=== PATIENT | female | born 1970 | race Caucasian/White ===

== ENCOUNTER → 2023-12-15 10:13 | Outpatient (REF) | payer BC, SELFPAY | LOC: HWWDC 10:13 | PROVIDERS: ATTENDING PHYSICIAN Obstetrics & Gynecology Gynecology; FAMILY PHYSICIAN Family Medicine | DX: Z12.31 Encounter for screening mammogram for malignant neoplasm of breast (principal) | CPT/HCPCS: 77063; 77067 ==

== ENCOUNTER → 2025-01-11 14:51 | Outpatient (REF) | payer BC, SELFPAY | LOC: HWWDC 14:51 | PROVIDERS: ATTENDING PHYSICIAN Obstetrics & Gynecology Gynecology; FAMILY PHYSICIAN Family Medicine | DX: Z12.31 Encounter for screening mammogram for malignant neoplasm of breast (principal) | CPT/HCPCS: 77063; 77067 ==

== ENCOUNTER 2025-05-17 15:24 | Inpatient (IN) | payer BC, SELFPAY ==
[2025-05-15 11:23] VITALS: BP 176/92
[2025-05-15 11:38] VITALS: BMI 38.4
--- NOTE | 2025-05-15 12:00 | ED.GENMED ---
History of Present Illness
General
Chief Complaint: Back Pain
Source: patient
Exam Limitations: none
Time Seen by Provider: 05/15/25 11:59
Nursing documentation reviewed up to this point in time: agreed with
History of Present Illness
History of Present Illness:
55-year-old female with history of diverticulitis, thyroid goiter, anxiety, total thyroidectomy 2002, bowel resection 2022, right oophorectomy, presents with right lower back pain radiating down the right buttock and tingling extending to the back
of the leg, reaching behind the knee. Symptoms began about a month ago and she's been seeing a chiropractor weekly, last visit 2 days ago, who performs stretches and adjustments. Initially, the adjustments provided some relief, but 2 days ago, she
experienced increased soreness and spasming pain described as squeezing, progressing to an agonizing level. Pain intensity was such that even sitting was difficult. She took aspirin that night, which allowed her to sleep. This a.m. at approximately
8:30 AM, upon attempting to sit, the pain intensified, described as a sensation of the back breaking, prompting her to seek ambulance transport to the facility. The current pain level is 4-5 out of 10 when at rest, worsening with movement,
especially with stretches involving any stretching of the area. She denies any loss of bowel or bladder control and numbness in the saddle area.
Past History
Past History
ED Past Medical History: Hypothyroidism
ED Past Surgical History: Bowel resection, , Gynecological, Orthopedic and Other (thyroidectomy: takes synthroid, shoulder replacement, , oophorectomy)
Social History
Tobacco: Non-smoker
Alcohol: None
Drug: None
Personal:
Living: with family
Employment: Employed
Family History
Family History: Other (Father with diverticulitis)
Review of Systems
Review of Systems
Allergies reviewed?: Yes
All Other Systems: ROS reviewed and negative except as documented in HPI and ROS
: Denies incontinence
Musculoskeletal: Reports back pain
Neurological: Denies weakness or numbness
Phy Exam
Physical Exam
Physical Exam:
GENERAL: No acute distress. A&Ox3.
CONSTITUTIONAL: Afebrile.
EYES: clear, conjunctivae normal
RESPIRATORY: Regular respirations, nonlabored, lungs clear.
CARDIOVASCULAR: Regular rate and rhythm, no murmurs, no rubs.
GI: Soft, nontender, normal BS
MUSCULOSKELETAL: Moves with ease. Well perfused.
SKIN: Warm, dry, pink
PSYCH: Anxious, tearful mood and affect. Well kept, interactive and appropriate
NEUROLOGIC: Awake, alert and oriented. No focal neurological deficits
Course
Orders/Labs/Results
Orders:
Orders
05/15/25 Breakfast
Regular
At Your Request: Full Participation
05/15/25 12:06
Dexamethasone Sod Phosphate [Decadron] 10 mg IV NOW STA
Ketorolac [Toradol] 15 mg IV NOW STA
diazePAM [Valium Injection] 5 mg IV NOW STA
05/15/25 12:07
0.9% Sodium Chloride 1000 ml [Nss] 1,000 ml IV BOLUS
05/15/25 12:14
Lumbar Spine, 2 or 3 View [CR Lumbar Spine 2 Or 3 Views] Urgent
Comment:
Reason For Exam: R low back pain w sciatica severe
05/15/25 13:31
HYDROmorphone [Dilaudid] 1 mg IV NOW STA
Ondansetron Injectable [Zofran] 4 mg IV NOW STA
05/15/25 17:15
Gabapentin [Neurontin] 300 mg PO NOW STA
HYDROmorphone [Dilaudid] 0.5 mg IV NOW STA
05/15/25 17:20
Admit/Transfer Patient As Directed
Co-Sign Provider:
Level of Care: Observation services
Assign to:: Medical/Surgical
Physician / Group: [facility]
Diagnosis: Right Sciatica
PRN Pain Medication Management As Directed
May give lesser potent ordered pain med per pt: Yes
preference::
Protocol:: Medication orders for pain may be administered in a
manner that supports deferring to patient preference
when the pt is:
- Requesting an ordered lesser potent pain medication.
Least to most potent pain medications are defined
as: acetaminophen < NSAID < tramadol < opioids
(morphine, oxycodone, hydromorphone).
- Requesting a lesser dose of the same medication IF
ORDERED.
- Requesting a less intrusive route of administration
if both routes are prescribed by the provider (PO <
IV).
05/15/25 17:21
Code Status As Directed
Resuscitation Status: Full Code
05/15/25 17:25
CBC/No Diff [Complete Blood Count/No Diff] Urgent
CMP [Comprehensive Metabolic Panel] Urgent
05/15/25 18:00
Lidocaine [Lidocaine 4% Patch] 1 patch TOPICAL DAILY@1800
Apply Lidocaine patch(s) to:: Right Buttock
05/15/25 18:46
HYDROmorphone [Dilaudid] 0.5 mg IV Q3HPRN PRN
Ketorolac [Toradol] 15 mg IV Q6HPRN PRN
Oxycodone [Roxicodone] 5 mg PO Q4HPRN PRN
05/15/25 18:46
Activity As Directed
Activity Level: Out of Bed-Early Mobility
With Assistance
I&O [Intake/ Output] As Directed
Frequency: q12h
Pneumatic Compression Sleeves As Directed
Type: Knee high
Vital Signs As Directed
Frequency: Per unit guidelines
Ot Eval And Treat Routine
Pt Eval And Treat Routine
Activity Level: Out of Bed-Early Mobility
DX Deep Vein Thrombosis Video Routine
05/15/25 22:00
Acetaminophen [Tylenol] 1,000 mg PO TID
05/16/25 07:00
Levothyroxine [Synthroid] 112 mcg PO DAILY AT 0700
05/16/25 08:00
Gabapentin [Neurontin] 300 mg PO BID
MethylPREDNISolone [Medrol] 24 mg PO ONCE ONE
05/17/25 08:00
MethylPREDNISolone [Medrol] 20 mg PO ONCE ONE
05/18/25 08:00
MethylPREDNISolone [Medrol] 16 mg PO ONCE ONE
05/19/25 08:00
MethylPREDNISolone [Medrol] 12 mg PO ONCE ONE
05/20/25 08:00
MethylPREDNISolone [Medrol] 8 mg PO ONCE ONE
05/21/25 08:00
MethylPREDNISolone [Medrol] 4 mg PO ONCE ONE
Vital Signs
Initial and Last Documented VS:
Initial Vital Signs
Temp Pulse Resp Pulse Ox
98.1 F 112 26 99
05/15/25 11:20 05/15/25 11:20 05/15/25 11:20 05/15/25 11:20
Last Documented Vital Signs
Temp Pulse Resp BP Pulse Ox
98.8 F 106 18 153/100 98
05/15/25 18:49 05/15/25 18:49 05/15/25 18:49 05/15/25 18:49 05/15/25 18:49
MDM/Problems Addressed
Differential Diagnosis Includes:
Lumbar radiculopathy, sciatica, herniated disc, lumbar muscle strain, arthritis
MDM/Problems Addressed:
55-year-old female with history of diverticulitis, thyroid goiter, anxiety, total thyroidectomy 2002, bowel resection 2022, right oophorectomy, presents with right lower back pain radiating down the right buttock and tingling extending to the back
of the leg, reaching behind the knee. Symptoms began about a month ago and she's been seeing a chiropractor weekly, last visit 2 days ago, who performs stretches and adjustments. Initially, the adjustments provided some relief, but 2 days ago, she
experienced increased soreness and spasming pain described as squeezing, progressing to an agonizing level. Pain intensity was such that even sitting was difficult. She took aspirin that night, which allowed her to sleep. This a.m. at approximately
8:30 AM, upon attempting to sit, the pain intensified, described as a sensation of the back breaking, prompting her to seek ambulance transport to the facility. The current pain level is 4-5 out of 10 when at rest, worsening with movement,
especially with stretches involving any stretching of the area. She denies any loss of bowel or bladder control and numbness in the saddle area.
Afebrile, tearful due to pain
1:30 p.m.
LS-spine x-ray reviewed and radiology report read: IMPRESSION:
No acute fracture or subluxation. Mild to moderate degenerative disc disease at L5-S1.
This examiner went in to reevaluate patient. In the process of attempting to get her out of bed she got to a semisitting position at the side of the stretcher then started screaming out in pain saying 'it's sharp pain in my tailbone and it is going
down my leg!' and couldn't move any further. Placed back supine.
Pain medication ordered
4:45 p.m.
Attempt to get pt OOB, she slowly stood at side of bed, leaning on back of chair then started screaming out in pain, unable to move her leg to take a step
Plan: Admit: Intractable back pain.
Hospitalist notified.
*Pulse Oximetry
SaO2: 99
Oxygen Mode of Delivery: Room air
Patient hypoxic: not evaluated
*Critical Care Note
Total Time (30-74mins, 75-104mins- exclusive of procedures): Not Applicable
ED Attending Note
-
Portions of this chart may have been created with voice recognition software.� Occasional wrong word or��sound alike� substitutions may have occurred due to the inherent limitations of voice recognition software.
Discharge Plan
Departure
Patient Disposition: Admit
Date of Disposition: 05/15/25
Time of Disposition: 16:52
Presentation/result/management discussed w/ accepting MD/DO: Hospitalist
Condition: Fair
Discharge Problem:
Intractable low back pain, Acute right-sided back pain with sciatica
Interventions
Interventions:
*Risk Screen - Suicide Last Done: 05/15/25 11:36
*General Assessment Last Done: 05/15/25 11:36
*Neglect/Abuse Screening Last Done: 05/15/25 11:36
*ED- Fall Risk Assessment Last Done: 05/15/25 11:36
*ED COVID-19 Vaccine History Last Done: 05/15/25 11:36
*Nursing Disposition Last Done: 05/15/25 18:48
ED-Musculoskeletal Assessment Last Done: 05/15/25 14:00
Discharge Date and Time
Discharge Date/Time: 05/15/25 18:48
[2025-05-15] MEDS: DECADRON 10 MG IV (12:15)
[2025-05-15] MEDS: VALIUM INJECTION 5 MG IV (12:15)
[2025-05-15] MEDS: TORADOL 15 MG IV (12:15)
[2025-05-15] MEDS: NSS 1000 IV (12:17)
[2025-05-15 12:50] VITALS: BP 165/78
[2025-05-15 13:00] VITALS: BP 159/87
[2025-05-15] MEDS: DILAUDID 1 MG IV (13:59)
[2025-05-15] MEDS: ZOFRAN 4 MG IV ×2 (13:59→20:35)
[2025-05-15 16:36] VITALS: BP 163/105
--- NOTE | 2025-05-15 17:01 | HPS.HSE ---
Addendum entered and electronically signed by Juana Koehler MD 05/15/25 20:19:
This is an addendum to H&P written by Sade Atwood on 05/15/2025. �Patient seen and examined independently with PA.
55-year-old female past medical history of diverticulitis with microperforation status post sigmoidectomy, thyroidectomy/hypothyroidism, obesity, hypertension, presenting with sharp pain in her right buttock radiating down the right for the past
month worse in past few days. �Went to chiropractor and got adjustment without improvement. �Could not walk today. �No saddle anesthesia, incontinence, fever or weight loss. �Severe pain resulting in decreased strength of the right lower extremity.
Given dexamethasone, diazepam, gabapentin, Dilaudid, ketorolac, lidocaine patch in emergency room.
Continue lidocaine patch, Tylenol, Toradol, oxycodone, and Dilaudid for pain. �Continue gabapentin. �Continue steroids as Medrol Dosepak. �PT/OT.
Original Note:
Family Physician
-
Family Physician: Edgar Quinonez
Chief Complaint
-
Right Buttock and Leg Pain
History of Present Illness
Patient is a 55 y/o female past medical history of hypothyroidism who presents with severe right buttock and right leg pain. Patient report for the last month she has been having some mild intermittent right sciatica pain for which she has been
seeing a chiropractor. Two days ago the pain got signficantly worse. She went to see her chiropractor for an adjustment but notes the pain did not really improve. Yesterday the pain was worse but she was able to sleep after taking two aspirin.
Today she was unable to ambulate due to the severity of the pain. She describes the pain as a sharp stabbing in the right buttock with radiation down the back of leg. She does note a little bit of tingling in the right buttock denies any numbness.
She is unable to bear weight on the right leg due to significant worsening of the pain. She denies any bowel or bladder incontinence or saddle anesthesia. She denies any fevers.
Medical History
Past Medical History
Past Medical History: Reports Other
Additional Past Medical History:
Hypothyroidism
Obesity
Past Surgical History: Reports Other
Additional Past Surgical History:
Thyroidectomy
Right Radial Head Implant
Oophorectomy
T&A
Sigmoidectomy
Social History
Tobacco: Former Smoker (Quit 30 years ago. Approx 10 pack years total use.)
Alcohol: Occasional
Drug: None
Family History
Family History: Other (Father: CAD)
Allergies / Home Medications
Allergies reflects when Allergies were last updated in [facility].
Home Medications with original date entered in [facility]
Allergy/Medication List:
Allergies
Allergy/AdvReac Type Severity Reaction Status Date / Time
ciprofloxacin Allergy Unknown Verified 11/11/22 06:38
codeine Allergy Vomiting Verified 11/11/22 06:38
hydrocodone bitartrate (From Allergy Patient Verified 11/11/22 06:38
Vicodin) Unaware
levofloxacin Allergy Hives Verified 11/11/22 06:38
metronidazole (From Flagyl) Allergy Hives Verified 11/11/22 06:38
Home Medications
levothyroxine 112 mcg tablet (Synthroid) 112 mcg PO DAILY AT 0700 Thyroid 01/24/08
cholecalciferol (vitamin D3) 25 mcg (1,000 unit) capsule (Vitamin D3) 25 mcg PO DAILY 05/15/25
ibuprofen 200 mg tablet 400 mg PO Q6HPRN PRN moderate pain 05/15/25
Review of Systems
-
A 12 point ROS was completed and negative except as noted: Yes
Constitutional: Denies Fever
Respiratory: Denies Cough or Trouble Breathing
Cardiac: Denies Chest Pain or Palpitations
Physical Exam
Vital Signs
Vital Signs
Temp Pulse Resp BP Pulse Ox
98.1 F 112 26 176/92 99
05/15/25 11:20 05/15/25 11:20 05/15/25 11:20 05/15/25 11:23 05/15/25 12:02
Physical Exam
General: Well Developed, Well Nourished and Other (Appears in pain, lying flat in bed)
HEENT: Anicteric and Moist mucous membranes
Respiratory: Clear and Non Labored Respirations
Cardiac: S1/S2 and Regular Rhythm
GI: Soft and Non Tender
Rectal: Deferred by Provider
Musculoskeletal: No Clubbing, No Cyanosis and No Edema
Skin: Warm and Dry
Neuro: Awake, Alert and Oriented
Psych: Calm
Laboratory Results
-
CBC and BMP pending
Impression/Plan
-
Intractable Right Sciatic Pain
-Add Lidocaine Patch and Gabapentin
-Patient received Decadron in ED - Transition to Medrol Dose-Patrick
-Continue Tylenol 1000mg TID
-Continue Toradol for mild pain, Oxycodone for moderate pain and Dilaudid for severe pain
-Consult PT/OT
Hypothyroidism
-Continue levothyroxine
DVT proph: SCDs
Code Status: Full Code
[2025-05-15] MEDS: DILAUDID 0.5 MG IV ×3 (17:44→23:36)
[2025-05-15] MEDS: LIDOCAINE 4% PATCH 1 PATCH TOPICAL (17:45)
[2025-05-15] MEDS: NEURONTIN 300 MG PO (17:45)
--- NOTE | 2025-05-15 17:46 | CM ---
CM reviewed chart and met with pt bedside in ED. Lives with her son in 2 story home, 2 [address], has half BA first floor, BR and full BA second floor. Independent in ADLs, personal care and ambulation at baseline. No assistive devices.
Confirms prescription coverage.
No hx VN or SNF.
PCP: Edgar Quinonez
Pharmacy: [facility] [address]
CM will continue to follow for any discharge planning needs.
[2025-05-15 18:49] VITALS: BP 153/100; BMI 38.3
--- NOTE | 2025-05-15 20:00 | PTCARENOTE ---
Pt arrived from the ED via stretcher. Patient pulled over onto the bed. AAOx3, VSS. BP elevated, however in severe pain. Reports back pain 10/10. Unable to walk, turn, or lift her hips at times. Arrived with a purewick. Purewick changed and
maintained due to pt's severe pain. Educated on the importance of not using a purewick when possible due to risk of infection and breakdown. Skin intact. Updated on pain meds, see MAR. Call nunez is within reach.
[2025-05-15] MEDS: TYLENOL 1000 MG PO (20:35)
[2025-05-15 20:45] LABS: Hematocrit 44.2 % (37.0-47.0); Hemoglobin 15.2 g/dL (12.0-16.0); Mean Corp Hgb Conc. 34.4 g/dL (33.0-37.0); Mean Corpuscular Volume 88.2 fL (81.0-99.0); Platelet Count 286 10^3/uL (130-400); Red Cell Dist. Width 13.1 % (11.5-14.5)
[2025-05-15 21:14] LABS: ALT (SGPT) 192 U/L (0-35); AST (SGOT) 96 U/L (14-36); Albumin 4.7 g/dl (3.5-5.0); Alkaline Phosphatase 104 U/L (38-126); Blood Urea Nitrogen 16 mg/dl (7-17); Calcium 9.9 mg/dl (8.4-10.2); Carbon Dioxide 23 mmol/L (22-30); Chloride 107 mmol/L (98-107); Estimated Creatinine Clearance 115 ml/min; Glucose 164 mg/dl (70-99); Potassium 4.4 mmol/L (3.5-5.1); Sodium 138 mmol/L (135-145); Total Protein 8.4 g/dl (6.3-8.2); eGFR > 60.00
[2025-05-15 23:36] VITALS: BP 150/92
[2025-05-16] MEDS: TORADOL 15 MG IV (03:18)
[2025-05-16] MEDS: SYNTHROID 112 MCG PO (06:08)
[2025-05-16] MEDS: REMOVE LIDOCAINE PATCH 1 PATCH REMOVE (06:08)
[2025-05-16 08:06] VITALS: BP 147/78
[2025-05-16] MEDS: NEURONTIN 300 MG PO (08:36)
[2025-05-16] MEDS: MEDROL 24 MG PO (08:36)
[2025-05-16] MEDS: TYLENOL 1000 MG PO ×3 (08:36→21:26)
[2025-05-16] MEDS: FLUSH (NSS) 1 FLUSH IV (08:39)
[2025-05-16 09:27] VITALS: PULSE 96; O2SAT 99
--- NOTE | 2025-05-16 09:37 | PTOTSP ---
pt currently requires supervision to max assist to complete simple ADLs, functional transfers, ambulation. pt did report ability to don pants without assistance this AM. pt unable to tolerate more than sitting at EOB, taking side steps. PT completed
assessment, able to educate and advise pt on techniques to decrease pain and inflammation. will defer to PT at this time, no acute OT needs identified.
--- NOTE | 2025-05-16 09:46 | CM ---
Chart reviewed including therapy notes, no skilled needs per OT, and patient to return to home when stable.
Plan; Home when stable, no needs.
--- NOTE | 2025-05-16 10:09 | W.PN.HOSP.TC ---
Today's Communication/Plan
-
see outlined plan below
Assessment / Plan
Assessment / Plan
Assessment:
Intractable Right Sciatic Pain
- continue Tylenol TID
- continue Lidocaine patch daily
- continue TID Gabapentin
- continue steroid/Medrol dose darío
- Narcotics only for severe pain
- PT/OT
- MRI to evaluate for disc herniation, compression of nerve
Hypothyroidism
- continue levothyroxine
DVT ppx: SCDs
Code: Full
Anticipated Discharge: 24 - 48 hours
Subjective/Interval History
-
Date of Service: May 16, 2025
reports RLE pain and ambulatory dysfunction
Objective Data
-
Vital Signs:
Vital Signs
Temp Pulse Resp BP Pulse Ox
97.7 F 89 18 147/78 100
05/16/25 08:06 05/16/25 08:06 05/16/25 08:06 05/16/25 08:06 05/16/25 08:06
I&O
05/15/25 05/16/25 05/17/25
06:59 06:59 06:59
Intake Total 960 / 960
Output Total 250 / 250
Balance 710 / 710
Physical Exam
-
General: No Apparent Distress
HEENT: Normocephalic and Atraumatic
Respiratory: Negative Wheezes
Cardiac: Regular Rhythm and S1/S2
GI: Soft and Nontender
Musculoskeletal: No Edema
Neuro: AO x 3
Hematologic / Lymphatic: No Lymphadenopathy
Psych: Calm
Data Reviewed
-
Total Time Spent with Patient (in minutes): 42
Labs: Labs Reviewed by me
[2025-05-16 15:59] VITALS: BP 158/84
[2025-05-16] MEDS: NEURONTIN 400 MG PO ×2 (17:08→21:26)
[2025-05-16] MEDS: LIDOCAINE 4% PATCH 1 PATCH TOPICAL (17:23)
[2025-05-16 23:06] VITALS: BP 171/99
[2025-05-17] VITALS (8 sets, daily range): BP systolic 130–189; BP diastolic 76–116
[2025-05-17] MEDS: REMOVE LIDOCAINE PATCH 1 PATCH REMOVE (05:51)
[2025-05-17] MEDS: SYNTHROID 112 MCG PO (05:51)
[2025-05-17] MEDS: NEURONTIN 400 MG PO ×3 (07:33→21:54)
[2025-05-17] MEDS: TYLENOL 1000 MG PO ×3 (07:33→21:54)
[2025-05-17 07:34] LABS: Hematocrit 42.8 % (37.0-47.0); Hemoglobin 14.3 g/dL (12.0-16.0); Mean Corp Hgb Conc. 33.4 g/dL (33.0-37.0); Mean Corpuscular Volume 90.3 fL (81.0-99.0); Platelet Count 259 10^3/uL (130-400); Red Cell Dist. Width 13.5 % (11.5-14.5)
[2025-05-17] MEDS: TORADOL 15 MG IV (07:45)
[2025-05-17] MEDS: MEDROL 20 MG PO (07:46)
[2025-05-17] MEDS: FLUSH (NSS) 2 FLUSH IV (07:47)
[2025-05-17 08:06] LABS: ALT (SGPT) 171 U/L (0-35); AST (SGOT) 87 U/L (14-36); Albumin 4.1 g/dl (3.5-5.0); Alkaline Phosphatase 100 U/L (38-126); Blood Urea Nitrogen 20 mg/dl (7-17); Calcium 8.9 mg/dl (8.4-10.2); Carbon Dioxide 27 mmol/L (22-30); Chloride 107 mmol/L (98-107); Estimated Creatinine Clearance 90 ml/min; Glucose 94 mg/dl (70-99); Potassium 4.1 mmol/L (3.5-5.1); Sodium 141 mmol/L (135-145); Total Protein 7.1 g/dl (6.3-8.2); eGFR > 60.00
[2025-05-17] MEDS: ROXICODONE 5 MG PO (09:22)
--- NOTE | 2025-05-17 11:40 | CM ---
Chart reviewed home when stable.
Plan; Home at discharge.
[2025-05-17] MEDS: APRESOLINE 5 MG IV (15:03)
--- NOTE | 2025-05-17 15:24 | W.PN.HOSP.TC ---
Today's Communication/Plan
-
repeat PT in AM
continue pain control, steroids
Assessment / Plan
Assessment / Plan
Assessment:
Intractable Right Sciatic Pain
- continue Tylenol TID
- continue Lidocaine patch daily
- continue TID Gabapentin
- continue steroid/Medrol dose darío
- Narcotics only for severe pain
- PT/OT - outpatient PT
- MRI: LARGE RIGHT CENTRAL DISC HERNIATION at L5/S1 causing SEVERE RIGHT LATERAL RECESS STENOSIS and severe impingement on the descending right S1 nerve root.
- given patient without weakness, will refer to OP spinal back specialist for consideration of RUBY.
Hypothyroidism
- continue levothyroxine
DVT ppx: SCDs
Code: Full
Anticipated Discharge: Within 24 hours
Subjective/Interval History
-
Date of Service: May 17, 2025
walking 15 feet with walker
pain improving
denies weakness
Objective Data
-
Labs:
Laboratory Results
05/17/25
06:25
WBC 7.8
Hgb 14.3
Hct 42.8
Plt Count 259
Sodium 141
Potassium 4.1
Chloride 107
Carbon Dioxide 27
BUN 20 H
Creatinine 0.9
Glucose 94
Calcium 8.9
Total Bilirubin 0.5
AST 87 H
ALT 171 H
Alkaline Phosphatase 100
Vital Signs:
Vital Signs
Temp Pulse Resp BP Pulse Ox
98.9 F 116 20 178/116 95
05/17/25 15:23 05/17/25 15:23 05/17/25 15:23 05/17/25 15:23 05/17/25 15:23
I&O
05/16/25 05/17/25 05/18/25
06:59 06:59 06:59
Intake Total 960 / 960 960 / 960
Output Total 250 / 250
Balance 710 / 710 960 / 960
Physical Exam
-
General: No Apparent Distress
HEENT: Normocephalic and Atraumatic
Respiratory: Negative Wheezes
Cardiac: Regular Rhythm
GI: Soft
Neuro: AO x 3
Psych: Calm
Data Reviewed
-
Total Time Spent with Patient (in minutes): 42
Labs: Labs Reviewed by me
[2025-05-17] MEDS: LIDOCAINE 4% PATCH 1 PATCH TOPICAL (17:30)
[2025-05-18] MEDS: REMOVE LIDOCAINE PATCH 1 PATCH REMOVE (05:40)
[2025-05-18] MEDS: SYNTHROID 112 MCG PO (06:25)
[2025-05-18 08:44] VITALS: BP 177/101
[2025-05-18] MEDS: MEDROL 16 MG PO (08:54)
[2025-05-18] MEDS: TYLENOL 1000 MG PO ×2 (08:55→15:29)
[2025-05-18] MEDS: NEURONTIN 400 MG PO ×2 (09:09→15:29)
[2025-05-18] MEDS: APRESOLINE 5 MG IV (09:09)
[2025-05-18] MEDS: FLUSH (NSS) 2 FLUSH IV (09:10)
--- NOTE | 2025-05-18 09:33 | W.PN.HOSP.TC ---
Today's Communication/Plan
-
dc to home with outpatient PT And spina/ortho on Tuesday for follow up
also PCP f/u for BP check - Nifedipine started
Assessment / Plan
Assessment / Plan
Assessment:
Intractable Right Sciatic Pain
- continue Tylenol TID
- continue Lidocaine patch daily
- continue TID Gabapentin
- continue steroid/Medrol dose darío (completed 3 days in hospital)
- PT/OT - outpatient PT
- MRI: LARGE RIGHT CENTRAL DISC HERNIATION at L5/S1 causing SEVERE RIGHT LATERAL RECESS STENOSIS and severe impingement on the descending right S1 nerve root.
- given patient without weakness, have referred patient to OP spinal ortho for office visit and RUBY
hypertensive urgency
- on Nifedipine 30mg started this hospitalization
- BP check with PCP f/u in 1 week
Hypothyroidism
- continue levothyroxine
DVT ppx: SCDs
Code: Full
More than 30 minutes spent in discharge including
Final examination of the patient
Summarizing hospital stay
Instructions for continuing care to all relevant caregivers
Preparation of discharge records, prescriptions, and referral forms
Total time spent (in minutes): 41
Anticipated Discharge: Today
Subjective/Interval History
-
Date of Service: May 18, 2025
working with PT
asymptomatic but with hypertension per RN this morning
Objective Data
-
Vital Signs:
Vital Signs
Temp Pulse Resp BP Pulse Ox
98.4 F 98 18 175/106 99
05/18/25 08:44 05/18/25 09:09 05/18/25 08:44 05/18/25 09:09 05/18/25 08:44
I&O
05/17/25 05/18/25 05/19/25
06:59 06:59 06:59
Intake Total 960 / 960 1200 / 1200
Balance 960 / 960 1200 / 1200
Physical Exam
-
General: No Apparent Distress
HEENT: Normocephalic and Atraumatic
Respiratory: Negative Wheezes
Cardiac: Regular Rhythm and S1/S2
GI: Soft
Genito-urinary: No Costovertebral Tender
Neuro: AO x 3
Psych: Calm
Data Reviewed
-
Total Time Spent with Patient (in minutes): 41
Labs: Labs Reviewed by me
--- NOTE | 2025-05-18 09:46 | W.DS.TRANS ---
DC Summary - Railroad Engineer
-
Discharge Instructions:
Discharge Diagnosis/Procedures L5-S1 disc herniation on the right with sciatica
, hypertension
Diet Regular
Activity As tolerated,With Walker
Bathing Restrictions None
Other Services PT
Instructions:
Stand-Alone Forms:
Changes to Home Medications: No
Discharge Medications:
DC Medications w/original date entered in [facility]
levothyroxine 112 mcg tablet (Synthroid) 112 mcg PO DAILY AT 0700 Thyroid 01/24/08
ibuprofen 200 mg tablet 400 mg PO Q6HPRN PRN moderate pain 05/15/25
acetaminophen 500 mg tablet (Tylenol Extra Strength) 1,000 mg (2 x 500 mg) PO TID #100 tabs 05/18/25
gabapentin 400 mg capsule 400 mg PO TID #90 caps 05/18/25
lidocaine 4 % topical patch 1 patch topical DAILY@1800 #30 ea 05/18/25
methylprednisolone 4 mg tablets in a dose pack (Medrol (Patrick)) See Rx Instructions PO .COMPLEX #21 ea 05/18/25
nifedipine 30 mg tablet,extended release 30 mg PO DAILY #30 tabs 05/18/25
Home Medication Changes
Pending Results: No
Total time spent discharging patient (in min): 42
[2025-05-18 10:19] VITALS: BP 123/95; O2SAT 98
[2025-05-18 13:24] VITALS: BP 134/98
== END 2025-05-18 16:03 | disposition home or self-care (01) | DRG 552 ==
LOC: 4 EAST ACU 15:24
PROVIDERS: Physician Assistant Medical; ADMITTING PHYSICIAN Hospitalist; ATTENDING PHYSICIAN Internal Medicine; EMERGENCY PHYSICIAN Emergency Medicine; FAMILY PHYSICIAN Family Medicine
DX: M51.17 Intervertebral disc disorders with radiculopathy, lumbosacral region (principal); F41.9 Anxiety disorder, unspecified; E89.0 Postprocedural hypothyroidism; I10 Essential (primary) hypertension; I16.0 Hypertensive urgency; E66.9 Obesity, unspecified; E04.9 Nontoxic goiter, unspecified; Z96.619 Presence of unspecified artificial shoulder joint; Z90.721 Acquired absence of ovaries, unilateral; Z90.49 Acquired absence of other specified parts of digestive tract; Z79.890 Hormone replacement therapy; Z68.38 Body mass index [BMI] 38.0-38.9, adult; Z87.891 Personal history of nicotine dependence; Z82.49 Family history of ischemic heart disease and other diseases of the circulatory system; Z88.1 Allergy status to other antibiotic agents; Z88.5 Allergy status to narcotic agent; Z88.8 Allergy status to other drugs, medicaments and biological substances
CPT/HCPCS: 72100; 72148; 80053; 85027; 96361; 96374; 96375; 97163; 97166; 97530; 99285

== ENCOUNTER 2025-06-12 06:17 | Day surgery (SDC) | payer BC, SELFPAY ==
[2025-05-29 11:33] LABS: ALT (SGPT) 101 U/L (0-35); AST (SGOT) 74 U/L (14-36); Albumin 4.6 g/dl (3.5-5.0); Alkaline Phosphatase 96 U/L (38-126); Blood Urea Nitrogen 15 mg/dl (7-17); Calcium 9.1 mg/dl (8.4-10.2); Carbon Dioxide 25 mmol/L (22-30); Chloride 108 mmol/L (98-107); Glucose 105 mg/dl (70-99); Potassium 4.0 mmol/L (3.5-5.1); Sodium 140 mmol/L (135-145); Total Protein 7.6 g/dl (6.3-8.2); eGFR > 60.00
[2025-05-29 11:43] LABS: Hematocrit 42.4 % (37.0-47.0); Hemoglobin 14.2 g/dL (12.0-16.0); Mean Corp Hgb Conc. 33.5 g/dL (33.0-37.0); Mean Corpuscular Volume 89.8 fL (81.0-99.0); Platelet Count 263 10^3/uL (130-400); Red Cell Dist. Width 13.3 % (11.5-14.5)
[2025-05-29 14:04] VITALS: BMI 37.3
--- NOTE | 2025-05-30 16:46 | PTCARENOTE ---
Abnormal ECG done 05/29/[address] Romano, no further intervention required.
[2025-06-12] VITALS (9 sets, daily range): BP systolic 104–186; BP diastolic 75–119; BMI 37.3
[2025-06-12] MEDS: TYLENOL 1000 MG PO (10:49)
[2025-06-12] MEDS: METHOCARBAMOL 1500 MG PO (10:49)
[2025-06-12] MEDS: CELEBREX 200 MG PO (10:49)
[2025-06-12] MEDS: NORMOSOL-R/PLASMALYTE-A 1000 IV (10:49)
--- NOTE | 2025-06-12 11:05 | PTCARENOTE ---
Patient's BP found to be 184/119, HR 122. Rechecked and found to be 198/[address] Laird and Dr. Mott made aware. Patient reports feeling very anxious and is tearful and crying. Face is flushed. Reports having white coat syndrome and is also on
menstrual cycle. BP rechecked at 10:55 and found to be 186/117 on LUE. Will continue to monitor. No orders received at this time.
[2025-06-12] MEDS: PROCARDIA XL (EXTENDED RELEASE) 30 MG PO (11:23)
[2025-06-12] MEDS: ULTRAM 50 MG PO (14:59)
== END 2025-06-12 16:08 | disposition home or self-care (01) ==
LOC: SDS 06:17
PROVIDERS: ATTENDING PHYSICIAN Orthopaedic Surgery Orthopaedic Surgery of the Spine; FAMILY PHYSICIAN Family Medicine
DX: M51.27 Other intervertebral disc displacement, lumbosacral region (principal)
CPT/HCPCS: 63030; 36415; 72020; 80053; 85027; 87070; 93005